=== PATIENT | male | born 1955 | race Caucasian/White ===

== ENCOUNTER 2021-08-05 11:44 | Observation (INO) ==
[2021-08-05 12:29] LABS: Basophils # 0.1 K/mcL (0.0-0.2); Basophils % 0.7 %; Eosinophils # 0.1 K/mcL (0.0-0.6); Eosinophils % 1.9 %; Hematocrit 45.4 % (37.5-50.1); Hemoglobin 15.8 g/dL (12.9-16.9); Immature Granulocytes % 0.3 % (0-4); Lymphocytes # 3.1 K/mcL (0.6-4.6); Lymphocytes % 43.6 %; Mean Corpuscular HGB Conc 34.8 g/dL (31.6-35.5); Mean Corpuscular Hemoglobin 31.4 pg (28.0-33.3); Mean Corpuscular Volume 90.3 fL (83.0-100.0); Mean Platelet Volume 9.4 fL (9.4-12.4); Monocytes # 0.7 K/mcL (0.0-1.3); Monocytes % 9.6 %; Neutrophils # 3.2 K/mcL (1.6-8.9); Platelet Count 197 K/mcL (140-400); Red Blood Count 5.03 M/mcL (4.19-5.50); Red Cell Distribution Width 13.2 % (11.5-14.5); Segmented Neutrophils % 43.9 %; White Blood Count 7.2 K/mcL (4.3-11.1)
[2021-08-05 13:00] LABS: BUN/Creatinine Ratio 12 (6-26); Blood Urea Nitrogen 18 mg/dL (8-23); Calcium 9.5 mg/dL (8.6-10.3); Carbon Dioxide 26 mEq/L (23-29); Chloride 102 mEq/L (98-107); Glucose 110 mg/dL (70-105); Osmolality,Calculated 287 (280-300); Potassium 3.5 mEq/L (3.5-5.1); Sodium 137 mEq/L (136-145); eGFR For African Americans 59 (> 60); eGFR For Non-African Americans 49 (> 60)
[2021-08-05 13:08] LABS: INR 1.1; Prothrombin Time 12.2 Seconds (9.4-12.1)
[2021-08-05 13:10] LABS: Activated Partial Thrombo Time 31.2 Seconds (26.0-36.0)
[2021-08-05 13:15] LABS: Troponin I < 0.03 ng/mL (< 0.04)
[2021-08-05] MEDS ORDERED: Isovue-370 500 ML BOTTLE IVP ONE (13:26)
[2021-08-05 13:43] LABS: Lipase 34 Units/L (11-82)
[2021-08-05] MEDS ORDERED: Naloxone 0.4 MG/ML INJ IVP PRN (15:16)
[2021-08-05] MEDS ORDERED: Ondansetron 4 MG/2 ML VIAL IVP PRN (15:16)
[2021-08-05] MEDS: *HR* Heparin 5,000 UNIT/ML VIAL SQ SCH (16:55)
[2021-08-05] MEDS: *HR* OxyCODONE/APAP 10/325 TABLET PO PRN (17:08)
[2021-08-05] MEDS: Dextroamphetamine/Amphetamine [Adderall 30 Mg Tablet] PO SCH (22:03)
[2021-08-05] MEDS: cloNIDine HCL 0.1 MG TABLET PO SCH (22:03)
[2021-08-06] MEDS: *HR* OxyCODONE/APAP 10/325 TABLET PO PRN ×2 (01:05→16:33)
[2021-08-06] MEDS: *HR* Heparin 5,000 UNIT/ML VIAL SQ SCH ×2 (05:53→16:25)
[2021-08-06] MEDS ORDERED: Regadenoson 0.4 MG/5 ML SYRINGE IVP ONE (06:43)
[2021-08-06 07:42] LABS: Basophils % 0.7 %; Eosinophils # 0.1 K/mcL (0.0-0.6); Eosinophils % 1.8 %; Hematocrit 42.5 % (37.5-50.1); Immature Granulocytes % 0.7 % (0-4); Lymphocytes % 35.1 %; Mean Corpuscular HGB Conc 33.4 g/dL (31.6-35.5); Mean Corpuscular Hemoglobin 30.9 pg (28.0-33.3); Mean Corpuscular Volume 92.6 fL (83.0-100.0); Mean Platelet Volume 9.7 fL (9.4-12.4); Monocytes # 0.5 K/mcL (0.0-1.3); Neutrophils # 2.9 K/mcL (1.6-8.9); Platelet Count 210 K/mcL (140-400); Red Blood Count 4.59 M/mcL (4.19-5.50); Red Cell Distribution Width 13.3 % (11.5-14.5); Segmented Neutrophils % 52.7 %; White Blood Count 5.6 K/mcL (4.3-11.1)
[2021-08-06 07:51] LABS: Hemoglobin 14.2 g/dL (12.9-16.9)
[2021-08-06 09:12] LABS: Calcium 8.9 mg/dL (8.6-10.3); Potassium 3.8 mEq/L (3.5-5.1)
[2021-08-06] MEDS: DOLUTEGRAVIR SODIUM PO SCH (12:06)
[2021-08-06] MEDS: LAMIVUDINE PO SCH (12:06)
[2021-08-06] MEDS: Dextroamphetamine/Amphetamine [Adderall 30 Mg Tablet] PO SCH ×2 (12:06→19:41)
[2021-08-06] MEDS: Isosorbide MONOnitrate (24 HR) 60 MG TAB.ER.24H PO SCH (12:11)
[2021-08-06] MEDS: cloNIDine HCL 0.1 MG TABLET PO SCH ×3 (12:11→19:50)
[2021-08-06] MEDS: Aspirin Enteric Coated 81 MG Tablet PO SCH (12:11)
[2021-08-06] MEDS: amLODIPine 5 MG TABLET PO SCH (12:11)
[2021-08-07] MEDS: *HR* Heparin 5,000 UNIT/ML VIAL SQ SCH (05:07)
[2021-08-07 06:28] LABS: Calcium 9.1 mg/dL (8.6-10.3); Potassium 3.9 mEq/L (3.5-5.1)
[2021-08-07 07:46] VITALS: PULSE 54
[2021-08-07] MEDS: cloNIDine HCL 0.1 MG TABLET PO SCH (07:56)
[2021-08-07] MEDS: Aspirin Enteric Coated 81 MG Tablet PO SCH (07:57)
[2021-08-07] MEDS: amLODIPine 5 MG TABLET PO SCH (07:57)
[2021-08-07] MEDS: Isosorbide MONOnitrate (24 HR) 60 MG TAB.ER.24H PO SCH (07:57)
[2021-08-07] MEDS: LAMIVUDINE PO SCH (08:19)
[2021-08-07] MEDS: DOLUTEGRAVIR SODIUM PO SCH (08:19)
[2021-08-07] MEDS: Dextroamphetamine/Amphetamine [Adderall 30 Mg Tablet] PO SCH (08:19)
[2021-08-07] MEDS ORDERED: 0.9 % Sodium Chloride 1,000 ML IVC SCH (10:00)
[2021-08-07 11:21] VITALS: BP 119/53; TEMP 97.6; O2SAT 93
[2021-08-07] MEDS ORDERED: Ranolazine 500 MG TAB.ER.12H PO SCH (21:00)
== END 2021-08-07 13:36 | disposition home or self-care (01) ==
LOC: 3BNU 11:44 → EMEROOARM 11:44 → SUATTDRO 15:04 → 3BNU 16:10
PROVIDERS: ADMIT Internal Medicine; ATTEND Family Medicine